=== PATIENT | female | born 1965 | race Caucasian/White ===

== ENCOUNTER 2020-04-13 05:53 | Inpatient (IN) ==
--- NOTE | 2020-03-23 13:22 | Anesthesiology Consultation ---
Date of Service March 23, 2020 Assessment & Plan (1) Encounter for pre-operative examination: Chart Review Chart Review: Acceptable Risk for Surgery (pending preop Covid testing ) and Patient NOT seen in Pre Admission Testing Pt initially scheduled for lumbar surgery 03/11/20- rescheduled due to Covid surge. Per nursing assessment 03/23/2020, patient denies any recent travel. No known Covid positive contacts or Covid related symptoms. Scheduled for preop Covid testing 04/06/20= will await results. Per PCP note 03/02/20= preop blood work on 02/25/20 showed Na of 128. Pt did drink alcohol daily but has not drank alcohol since 02/25/20. No signs or symptoms of detox. Also stopped HCTZ. Plan is for repeat labs 03/03/20. "She is cleared for surgery depending on her hyponatremia status on her labs tomorrow.." Per PCP comment on 03/03/20 labs= "called patient-- labs normal-- 138 sodium." History Surgery Operation Date: 04/13/20 12:45 Proposed Procedures p L3-L4 Decompression Fusion, Spinal Cord Monitoring - Dheeraj Flower DO Height/Weight Height: 5 ft 6 in Weight: 108.862 kg Allergies Allergy/AdvReac Type Severity Reaction Status Date / Time ampicillin Allergy Unknown Verified 03/23/20 12:15 Penicillins Allergy Unknown Verified 03/23/20 12:15 Medications Home Medications Medication Instructions Recorded Confirmed Last Taken acetaminophen-codeine 1 tab PO BID PRN 01/01/20 03/23/20 Unknown carisoprodol 350 mg PO HS PRN 01/01/20 03/23/20 Unknown doxycycline hyclate 100 mg PO BIDM 01/01/20 03/23/20 Unknown hydrochlorothiazide 25 mg PO DAILY PRN 01/01/20 03/23/20 Unknown lisinopril 10 mg PO QAM 01/01/20 03/23/20 Unknown lorazepam 0.25 - 0.5 mg PO BID PRN 01/01/20 03/23/20 Unknown lysine 1,000 mg PO QAM 01/01/20 03/23/20 Unknown omega-3 fatty acids-fish oil [Fish 1 cap PO QAM 01/01/20 03/23/20 Unknown Oil Extra Strength] thyroid (pork) [[place] Thyroid] 30 mg PO QAM 01/01/20 03/23/20 Unknown ibuprofen [Advil] 400 mg PO Q6H PRN 02/17/20 03/23/20 Unknown Past Medical History Medical History Anxiety Bulging discs Depression Fluid retention ankles (occasionally) Hypertension Hypothyroidism Osteoarthritis Rosacea Past Family History Family History Mother Diabetes Past Surgical History Surgical History History of appendectomy History of intussusception when 3 months old with surgical intervention History of tonsillectomy Hx of fracture left leg surgical repair Social History Smoking Status: Former smoker Do You Dip or Chew Tobacco: No Smoking End Date: 5 yrs ago Hx Alcohol Use: Yes Alcohol type: beer, wine and hard liquor alcohol intake frequency: 3 or more drinks per day Hx Substance Use: No substance use type: does not use Testing Laboratory Results 03/03/20= SODIUM: 138 POTASSIUM: 4.0 CHLORIDE: 101 CO2: 25 BUN: 13 CREATININE: 0.7 GLUCOSE: 92 Laboratory Tests 02/25/20 02/25/20 14:34 14:34 WBC 6.65 Hgb 14.5 Hct 41.2 Plt Count 208 PT 11.9 INR 1.1 APTT 27.6 02/25/20= UA: negative URINE CULTURE: Gardnerella-like bacilli T&S: O negative, antibody negative Electrocardiogram Date: 02/25/20 Findings: + NSR @ (92bpm) Normal EKG. Chest X-Ray Date: 02/25/20 Findings: + NAD Mild right hemidiaphragmatic elevation.
[2020-04-13] MEDS ORDERED: LR 15ML/HR IV SCH (06:00)
[2020-04-13] MEDS ORDERED: CLINDAMYCIN 600 MG/54 ML BAG IV SCH (06:00)
[2020-04-13] MEDS ORDERED: GABAPENTIN 600 MG DOSE PO SCH (06:00)
[2020-04-13] MEDS ORDERED: MIDAZOLAM HCL 1 MG/ML 2ML VIAL ONE (07:06)
[2020-04-13] MEDS ORDERED: fentaNYL citrate 100 MCG/2 ML VIAL ONE (07:06)
[2020-04-13] MEDS ORDERED: LABETALOL HCL IV 5 MG/ML 20ML IV PRN (07:11)
[2020-04-13] MEDS ORDERED: HYDROmorphone INJ 1 MG/ML SYRINGE IV PRN ×2 (07:11→10:57)
[2020-04-13] MEDS ORDERED: ONDANSETRON INJ 2 MG/ML 2 ML VIAL IV PRN ×2 (07:11→10:57)
[2020-04-13] MEDS ORDERED: PROMETHAZINE HCL 12.5 MG in SODIUM CHLORIDE 0.9% 50 ML IV PRN ×2 (07:11→10:57)
[2020-04-13] MEDS ORDERED: ATROPINE SULFATE 0.1 MG/ML 10ML SYR IV PRN (07:11)
[2020-04-13] MEDS ORDERED: BACITRACIN INJ 50,000 UNIT VIAL ONE (07:13)
[2020-04-13] MEDS ORDERED: BUPIVACAINE/EPINEPHRINE 0.5% MPF 1:200,000 30 ML VIAL ONE (07:14)
[2020-04-13] MEDS ORDERED: PROPOFOL IV EMULSION 10 MG/ML 20 ML VIAL IV ONE (07:30)
[2020-04-13] MEDS ORDERED: LIDOCAINE HCL 2% 2 ML VIAL/AMP(20MG/ML) INFIL ONE (07:30)
[2020-04-13] MEDS ORDERED: ROCURONIUM BROMIDE 10 MG/ML 5 ML VIAL IV ONE ×2 (07:30→08:31)
[2020-04-13] MEDS ORDERED: GLYCOPYRROLATE 0.2 MG/ML VIAL ONE (07:30)
[2020-04-13] MEDS ORDERED: ONDANSETRON INJ 2 MG/ML 2 ML VIAL ONE (07:30)
[2020-04-13] MEDS ORDERED: DEXAMETHASONE SOD INJ 4 MG/ML VIAL ONE (07:30)
[2020-04-13] MEDS ORDERED: NEOSTIGMINE METHYLSULFATE 1 MG/ML 10ML VIAL ONE (07:30)
--- NOTE | 2020-04-13 07:33 | History & Physical Bridge Note ---
Date of Service April 13, 2020 History & Physical Bridge Note I have examined the patient, reviewed the History & Physical and in the interval since the performance of the History & Physical I have noted the following changes of clinical significance: no changes noted
--- NOTE | 2020-04-13 07:34 | History & Physical Report ---
Date of Service April 13, 2020 Assessment & Plan (1) Neurogenic claudication due to lumbar spinal stenosis: Admission and Anticipated Discharge Date Admission Date: L3-L4 decompression fusion History of Present Illness Chief Complaint: Back and leg pain Primary Care Provider: Joseph Richardson This is a 55-year-old female who presents with car persistent back and leg pain. Failing course of nonoperative care she is here for surgical intervention. Allergies Allergy/AdvReac Type Severity Reaction Status Date / Time ampicillin Allergy Unknown Verified 04/13/20 06:21 Penicillins Allergy Unknown Verified 04/13/20 06:21 Home Medications Medication Instructions Recorded Confirmed Type acetaminophen-codeine 1 tab PO BID PRN 01/01/20 04/13/20 History carisoprodol 350 mg PO HS PRN 01/01/20 04/13/20 History doxycycline hyclate 100 mg PO BIDM 01/01/20 04/13/20 History hydrochlorothiazide 25 mg PO DAILY PRN 01/01/20 04/13/20 History lisinopril 10 mg PO QAM 01/01/20 04/13/20 History lorazepam 0.25 - 0.5 mg PO BID PRN 01/01/20 04/13/20 History lysine 1,000 mg PO QAM 01/01/20 04/13/20 History omega-3 fatty acids-fish oil [Fish 1 cap PO QAM 01/01/20 04/13/20 History Oil Extra Strength] thyroid (pork) [[place] Thyroid] 30 mg PO QAM 01/01/20 04/13/20 History ibuprofen [Advil] 400 mg PO Q6H PRN 02/17/20 04/13/20 History naproxen sodium [Aleve] 220 mg PO BID PRN 04/13/20 04/13/20 History polyethylene glycol 3350 [Miralax] 17 g PO DAILY 04/13/20 04/13/20 History Past Med/Surg History Medical History Anxiety Bulging discs Depression Fluid retention ankles (occasionally) Hypertension Hypothyroidism Osteoarthritis Rosacea Surgical History History of appendectomy History of intussusception when 3 months old with surgical intervention History of tonsillectomy Hx of fracture left leg surgical repair Family History Mother Diabetes Social History Smoking Status: Former smoker Tobacco Type: Cigarettes Smoking End Date: 5 yrs ago; Second Hand Exposure: Yes; Do You Dip or Chew Tobacco: No; Tobacco Cessation Education Requested by Patient: No Hx Alcohol Use: Yes Alcohol type: beer, wine and hard liquor Hx Substance Use: No Preferred Language: Kazakh Communication Ability: Effective Manager Play Required: No Beliefs That Will Affect Care: None Current Living Situation: Significant Other Other Information That Helps Us Care for You: No Feels Safe at Home: Yes Safety Concerns: Feels Safe At This Time Assistive Devices: None and Walker Physical Exam Physical Exam: Patient is alert and oriented Heart regular in rhythm Lungs clear to auscultation Results & Data ([facility]) Vital Signs (Past 12 Hours) Vital Signs Temp Pulse Resp BP Pulse Ox 04/13/20 06:35 36.9 C 85 20 174/99 H 98
[2020-04-13] MEDS ORDERED: HYDROmorphone INJ 2 MG/ML SYR/VIAL ONE (08:11)
[2020-04-13] MEDS ORDERED: LARYING-O-JET KIT (LTA) ONE (08:48)
[2020-04-13] MEDS ORDERED: LABETALOL HCL IV 5 MG/ML 20ML IV ONE ×3 (09:07→09:17)
[2020-04-13] MEDS ORDERED: FLOSEAL HEMOSTATIC MATRIX 10ML TOP ONE (09:14)
--- NOTE | 2020-04-13 09:24 | Operative Report ---
Post Operative Report Pre & Post Diagnosis Operation Date: 04/13/20 07:45 Pre-Op Diagnosis: Spinal Stenosis, Lumbar Region with Neurogenic Morbid obesity Post-Op Diagnosis: Spinal Stenosis, Lumbar Region with Neurogenic Morbid obesity I identified the patient and participated in the time-out.: Yes Procedure Operation Date: 04/13/20 07:45 Actual Procedures #1 lumbar decompression with bilateral medial facetectomies and foraminotomies L2-3 and L3-4 per #2 posterior spinal fusion L3-4. #3 placement posterior instrumentation L3-4 per #4 interbody fusion L3-4 per #5 placement of peek cage 13 x 26 mm at L3-4. #6 placement locally harvested morselized autograft in the posterior lateral gutters per #7 placement infuse collagen sponge plan master graft in the posterior lateral gutters and ostial amp interbody space. Surgeon Dheeraj Flower, Char Conveyor Tender Cellar Adela Azevedo Estimated Blood Loss 200 Findings See Below Patient is 5 foot 6 inches tall weighing over 113 kg with a BMI in excess of 40. Patient's body habitus did add significant technical difficulty requiring her deepest retractors and longus instruments in order to perform her procedure. This had at least 50% increase to the operative time. Specimens None Indications This is a 55-year-old female known to me the presents with above-mentioned diagnosis after failing course of nonoperative care she is here for the above- mentioned seizure. Description of Procedure Patient was met with identified informed consent obtained. Patient was then taken to the operative suite underwent an patient placed in a prone position on the Giovanni table atop the Maxi frame. All bony prominences well-padded eyes inspected to ensure no external pressure placed upon them. This point the lumbar spine was prepped and draped in a sterile fashion. Sharp dissection with the assistance of Bovie cautery was performed down to and exposing the lamina and transverse processes of L3-L4 bilaterally. From caudal to cephalad fashion complete laminectomy of L3 partial laminectomy of L2 was performed including bilateral medial facetectomies and foraminotomies addressing all neural compression. I then placed pedicle screws at L3 and L4 bilaterally with assistance of fluoroscopy and appropriately sized myla placed. By way of a transforaminal approach on the left complete discectomy was performed endplates curetted to subcortical bleeding bone and a 13 x 26 mm peek cage filled with osteobone graft tapped in position. Please note I did address all fragments of disc material that had migrated caudally under the left L4 nerve root. The rods were then locked in final position bilaterally. The transverse processes of L3 and L4 were burred to subcortical bleeding bone. Infuse collagen sponge mass graft local autograft was placed in the posterior gutters. 15 round KENNETH drain inserted. The incision was then closed with 1 Vicryl in the fascia 2-0 Vicryl subcutaneously and 4 Monocryl for final skin closure. Steri-Strip sterile dressings placed. Patient will continue PACU stable condition. Please note spinal cord monitoring was last that the procedure no changes noted. Lastly Adela Azevedo was present at the entire surgery involved the patient positioning complex portions of the surgery and final skin closure. I attest to the content of the Intraoperative Record and any orders documented therein. Any exceptions are noted below.
--- NOTE | 2020-04-13 09:38 | Fluoroscopy Report ---
INTRAOPERATIVE RADIOGRAPHS CLINICAL HISTORY: L3-L4 spinal fusion. Fluoroscopy time: 19 seconds. FINDINGS: 2 spot fluoroscopic views of the lumbar spine are presented. There has been discectomy at L 3-L4 with laminectomy and posterior fusion at this level. Interpedicular screws are in place. The ort hopedic hardware appears intact. IMPRESSION: Intraoperative images from L3-L4 spinal fusion as above. Electronically signed by: Gerson Awad M.D. 04/13/2020 9:36 AM
[2020-04-13] MEDS ORDERED: hydroCHLOROthiazide 25 MG TAB PO PRN (10:57)
[2020-04-13] MEDS ORDERED: MAGNESIUM HYDROXIDE SUSP 30 ML UDC PO PRN (10:57)
[2020-04-13] MEDS ORDERED: METOCLOPRAMIDE HCL INJ 5 MG/ML 2 ML VIAL IV PRN (10:57)
[2020-04-13] MEDS ORDERED: DO NOT ADMINISTER FLU VACCINE PRN (10:57)
[2020-04-13] MEDS ORDERED: DO NOT ADMINISTER PNEUMOCOCCAL VACCINE PRN (10:57)
[2020-04-13] MEDS ORDERED: hydrOXYzine HCl 25 MG TAB PO PRN (10:57)
[2020-04-13] MEDS ORDERED: diphenhydrAMINE Capsule 25 MG CAP PO PRN (10:57)
[2020-04-13] MEDS ORDERED: FAMOTIDINE 20 MG TAB PO PRN (10:57)
[2020-04-13] MEDS ORDERED: ALUMINUM/MAGNESIUM SUSP 30 ML UDC PO PRN (10:57)
[2020-04-13] MEDS ORDERED: ONDANSETRON 4 MG OD TAB PO PRN (10:57)
[2020-04-13] MEDS ORDERED: SOD PHOSPHATE/SOD BIPHOSPHATE ENEMA 132 ML BTL PR PRN (10:57)
[2020-04-13] MEDS ORDERED: NALOXONE HCL 0.4 MG/1 ML VIAL/CARP IV PRN (10:57)
[2020-04-13] MEDS ORDERED: LORazepam 0.5 MG/1 ML VIAL IV PRN (10:57)
[2020-04-13] MEDS: HYDROmorphone INJ 0.5 MG/0.5 ML SYR IV PRN (11:15)
[2020-04-13] MEDS: KETOROLAC TROMETHAMINE 15 MG/ML VIAL IV SCH ×3 (12:23→23:53)
[2020-04-13] MEDS: oxyCODONE HCL IR 5 MG TAB (IMMEDIATE RELEASE) PO PRN ×2 (13:48→19:09)
--- NOTE | 2020-04-13 14:43 | Anesthesiology Progress Note ---
Date of Service April 13, 2020 Anesthesia Post Procedure Vital Signs Vital Signs: Temp Pulse Pulse Pulse Resp BP BP 04/13/20 14:35 36.6 C 69 16 135/89 04/13/20 13:42 74 18 138/92 04/13/20 12:26 64 16 139/89 04/13/20 11:30 57 L 18 124/81 04/13/20 11:00 62 18 141/95 H 04/13/20 10:35 36.5 C 64 16 129/87 04/13/20 10:26 36.3 C L 57 L 16 130/89 04/13/20 10:15 36.3 C L 60 16 133/94 04/13/20 10:05 63 15 121/89 04/13/20 09:55 61 14 118/85 04/13/20 09:45 61 16 120/80 04/13/20 09:39 37 C 75 16 144/93 H 04/13/20 06:35 36.9 C 85 20 174/99 H Pulse Ox 04/13/20 14:35 93 04/13/20 13:42 96 04/13/20 12:26 97 04/13/20 11:30 95 04/13/20 11:00 98 04/13/20 10:35 97 04/13/20 10:26 94 04/13/20 10:15 94 04/13/20 10:05 94 04/13/20 09:55 94 04/13/20 09:45 98 04/13/20 09:39 98 04/13/20 06:35 98 Pain Intensity Lower Back: Pain Intensity: 2 Transfer of Care Handoff Completed per policy Notes Mental Status: alert / awake / arousable Patient Amnestic to Procedure: Yes Nausea / Vomiting: adequately controlled Pain: adequately controlled Airway Patency, RR, SpO2: stable & adequate BP & HR: stable & adequate Hydration State: stable & adequate Anesthetic Complications: no major complications apparent
[2020-04-13] MEDS: LACTATED RINGER'S 1,000 ML IV SCH (16:34)
[2020-04-13] MEDS: CLINDAMYCIN 600 MG in DEXTROSE 5% 50 ML IV SCH ×2 (16:37→23:52)
[2020-04-13] MEDS: DOCUSATE SODIUM/SENNA 50/8.6MG TAB PO SCH (20:26)
[2020-04-13] MEDS: ACETAMINOPHEN 1,000 MG/100 ML VIAL IV PRN (21:52)
[2020-04-13] MEDS: CARISOPRODOL 350 MG TABLET PO PRN (23:53)
[2020-04-14] MEDS: oxyCODONE HCL IR 5 MG TAB (IMMEDIATE RELEASE) PO PRN ×6 (00:33→23:28)
[2020-04-14] MEDS: LACTATED RINGER'S 1,000 ML IV SCH (00:37)
[2020-04-14] MEDS: traMADol HCL 50 MG TABLET PO PRN ×3 (03:41→20:18)
[2020-04-14] MEDS: KETOROLAC TROMETHAMINE 15 MG/ML VIAL IV SCH (05:37)
[2020-04-14 06:09] LABS: Basophils # (auto) 0.02 K/uL (0-0.2); Basophils % (auto) 0.3 %; Eosinophils # (auto) 0.05 K/uL (0-0.5); Eosinophils % (auto) 0.7 %; Hematocrit (blood only) 31.7 % (37-47); Hemoglobin 10.5 g/dL (12.0-16.0); Immature Granulocytes # (auto) 0.01 K/uL (0.00-0.02); Immature Granulocytes % (auto) 0.1 %; Lymphocytes # (auto) 1.46 K/uL (1.2-3.4); Lymphocytes % (auto) 21.4 %; Mean Corpuscular Hemoglobin 32.9 pg (25-34); Mean Corpuscular Hgb Conc 33.1 g/dL (32-36); Mean Corpuscular Volume 99.4 fL (80-100); Monocytes # (auto) 1.09 K/uL (0.11-0.59); Neutrophils % (auto) 61.5 %; Platelet Count 169 K/uL (130-400); RDW Coefficient of Variation 13.8 % (11.5-14.5); RDW Standard Deviation 49.6 fL (36.4-46.3); Red Blood Count 3.19 M/uL (4.2-5.4); White Blood Count 6.83 K/uL (4.8-10.8)
[2020-04-14 06:32] LABS: Calcium 8.9 mg/dl (8.5-10.1); Creatinine Clr Calc Pharmacy 106.8 ml/min; Est GFR (African American) 103.3; Est GFR (Non-African American) 89.1; Potassium 4.1 mmol/L (3.5-5.1)
[2020-04-14] MEDS: POLYETHYLENE (MIRALAX) 17 GM PACK PO SCH ×4 (08:30→23:29)
[2020-04-14] MEDS: lisinopril 10 MG TAB PO SCH (08:30)
[2020-04-14] MEDS: LORazepam 0.5 MG TAB PO PRN ×2 (08:38→16:16)
[2020-04-14] MEDS ORDERED: ARMOUR THYROID 30 MG TAB PO SCH (09:00)
[2020-04-14] MEDS ORDERED: NURSING DECISION MEDICATION ONE (13:46)
[2020-04-14] MEDS ORDERED: Nursing to Pharmacy Communication SCH (14:00)
[2020-04-14] MEDS: HYDROmorphone INJ 0.5 MG/0.5 ML SYR IV PRN (16:18)
--- NOTE | 2020-04-14 16:27 | Orthopedic Progress Note ---
Date of Service April 14, 2020 Assessment & Plan (1) Neurogenic claudication due to lumbar spinal stenosis: Admission and Anticipated Discharge Date Admission Date: April 13, 2020 This time we will continue physical therapy monitor KENNETH output anticipate disch arge home in the next few days. Subjective Back pain controlled leg symptoms markedly improved. Physical Exam Physical Exam: Patient is good strength testing appears comfortable. Results & Data ([facility]) Vital Signs (Past 12 Hours) Vital Signs Temp Pulse Resp BP Pulse Ox 04/14/20 15:00 37 C 89 16 142/92 H 99 04/14/20 11:50 36.7 C 83 16 138/83 95 04/14/20 07:00 36.6 C 75 16 130/81 97
[2020-04-14] MEDS: DOXYCYCLINE HYCLATE 100 MG CAP PO SCH ×2 (18:14→18:25)
[2020-04-14] MEDS: CARISOPRODOL 350 MG TABLET PO PRN (19:52)
[2020-04-14] MEDS: DOCUSATE SODIUM/SENNA 50/8.6MG TAB PO SCH (20:18)
[2020-04-14] MEDS: ACETAMINOPHEN 1,000 MG/100 ML VIAL IV PRN (23:23)
[2020-04-15] MEDS: traMADol HCL 50 MG TABLET PO PRN ×3 (03:54→22:03)
[2020-04-15] MEDS: ARMOUR THYROID 30 MG TAB PO SCH (05:36)
[2020-04-15] MEDS: oxyCODONE HCL IR 5 MG TAB (IMMEDIATE RELEASE) PO PRN ×4 (05:39→23:01)
[2020-04-15] MEDS: POLYETHYLENE (MIRALAX) 17 GM PACK PO SCH (05:40)
[2020-04-15] MEDS: lisinopril 10 MG TAB PO SCH (07:55)
[2020-04-15] MEDS: DOXYCYCLINE HYCLATE 100 MG CAP PO SCH ×2 (07:56→17:22)
[2020-04-15] MEDS: DEXAMETHASONE SOD PHOSPHATE 8 MG in SYRINGE 0 ML IV SCH (07:56)
[2020-04-15] MEDS ORDERED: bisacodyL 10 MG SUPP PR PRN (09:26)
--- NOTE | 2020-04-15 10:46 | Orthopedic Progress Note ---
Date of Service April 15, 2020 Assessment & Plan (1) Neurogenic claudication due to lumbar spinal stenosis: Admission and Anticipated Discharge Date Admission Date: April 13, 2020 At this time continue physical therapy monitor KENNETH output. We are anticipating possible rehab or home health upon discharge. Could be as soon as tomorrow. Subjective Back pain controlled leg symptoms improved. Physical Exam Physical Exam: Patient is good strength testing appears comfortable. Results & Data ([facility]) Vital Signs (Past 12 Hours) Vital Signs Temp Pulse Resp BP Pulse Ox 04/15/20 07:37 36.9 C 77 16 129/69 96 04/14/20 23:06 36.8 C 87 18 161/99 H 92
[2020-04-15] MEDS: CARISOPRODOL 350 MG TABLET PO PRN ×2 (11:24→20:10)
[2020-04-15] MEDS: HYDROmorphone INJ 0.5 MG/0.5 ML SYR IV PRN ×2 (15:21→21:30)
[2020-04-15] MEDS: LORazepam 0.5 MG TAB PO PRN (19:50)
[2020-04-15] MEDS: DOCUSATE SODIUM/SENNA 50/8.6MG TAB PO SCH (19:50)
[2020-04-15] MEDS: ACETAMINOPHEN 500 MG TAB PO PRN (22:00)
[2020-04-16] MEDS: HYDROmorphone INJ 0.5 MG/0.5 ML SYR IV PRN ×2 (02:34→09:37)
[2020-04-16] MEDS: oxyCODONE HCL IR 5 MG TAB (IMMEDIATE RELEASE) PO PRN ×4 (02:51→16:30)
[2020-04-16] MEDS: CARISOPRODOL 350 MG TABLET PO PRN ×2 (04:01→12:15)
[2020-04-16] MEDS: ARMOUR THYROID 30 MG TAB PO SCH (06:09)
[2020-04-16] MEDS: ACETAMINOPHEN 500 MG TAB PO PRN (06:10)
[2020-04-16] MEDS: lisinopril 10 MG TAB PO SCH (07:44)
[2020-04-16] MEDS: DOXYCYCLINE HYCLATE 100 MG CAP PO SCH ×2 (07:45→16:30)
[2020-04-16] MEDS: traMADol HCL 50 MG TABLET PO PRN ×2 (07:45→14:38)
[2020-04-16] MEDS: DEXAMETHASONE SOD PHOSPHATE 8 MG in SYRINGE 0 ML IV SCH (07:45)
--- NOTE | 2020-04-16 13:27 | Discharge Summary ---
Date of Service April 16, 2020 Admission HPI Per Admitting Provider This is a 55-year-old female who presents with car persistent back and leg pain. Failing course of nonoperative care she is here for surgical intervention. Principal Diagnosis Lumbar spinal stenosis with neurogenic claudication Discharge Data Allergies Allergy/AdvReac Type Severity Reaction Status Date / Time ampicillin Allergy Unknown Verified 04/13/20 06:21 Penicillins Allergy Unknown Verified 04/13/20 06:21 Consultations 04/13/20 10:57 Consult Case Management - Discharge Planning Routine Procedures Performed Operation Date: 04/13/20 07:45 Actual Procedures p L3-L4 Decompression Fusion, Spinal Cord Monitoring, Application of Bone Morphogenetic Protein and Allograft, Placement of Interbody L3-L4 - Dheeraj Flower DO Ordered Studies 04/13/20 07:45 FL fluoroscopy <1hr Routine FL lumbar spine 2-3V Routine Hospital Course (1) Neurogenic claudication due to lumbar spinal stenosis: Patient with radicular symptoms intolerance was taken to the orthopedic floor postoperative. Postop day 1 she was up and ambulating progressed to postop day #2 on postop day #3 KENNETH drain decreased probably. Pain well controlled. Subsequently discharged home. Discharge orders instructions were on the chart for further review. Total Time Total Time Spent Total Time Spent (In Minutes): 20 minutes Discharge Plan Discharge Items Patient Disposition: Home - Home Health Services Reason For Visit: Spinal Stenosis, Lumbar Region with Neurogenic Discharge Diagnosis: Lumbar spinal stenosis with neurogenic claudication Activity: As commented below Non-emergency contact: Primary Care Provider Call non-emergency contact if: you have any medication questions Follow-up/Referrals: Joseph Richardson [Primary Care Provider] - Diet: Regular Addtl Attending Provider Instructions: ACTIVITY RECOMMENDATIONS: SELF CARE INSTRUCTIONS AFTER THORACIC/LUMBAR FUSIONS 1. You may walk to your tolerance. It is good exercise for your legs and back. Expect some back and intermittent leg aches and pains. 2. You may perform "counter-top" level activities (make a sandwich, suzette with a project, etc.). 3. No bending or lifting of more than 10 pounds or back twisting of any nature (roll like a log when turning in bed). 4. You may ride in a car for 20-30 minutes at a time. No driving until after your first visit with your doctor. 5. Frequent changes of position and restricting sitting to 30 minutes at a time will help limit the amount of back spasms and stiffness you may experience. 6. You may discontinue the use of ambulatory aids (cane, crutches, etc.) once your strength and confidence allow. 7. You may international operations manager the shower and let water strike your incision when you arrive home at least once daily. Do not take a tub bath, sit in a hot tub or go into a swimming pool until after your first recheck in the office. SPECIAL CARE INSTRUCTIONS: VERY IMPORTANT TO READ AND REVIEW A. Your surgical incision has been closed with a cosmetic suture under the skin that will dissolve in about 6 weeks. In 14 days, you can use a pair of clean scissors and cut the suture that is left outside of the skin at the ends of your incision. 1. The small skin tapes can be removed 7 days after surgery if they have not fallen off by that point. 2. You may keep the wound open to air as much as possible to promote healing after post-op day number 5 unless told otherwise by your doctor. 3. If you think the wound looks like it is becoming infected (redness or worsening drainage) and/or you are experiencing fever, chill or worsening back pain and muscle spasms, contact the office so that we may evaluate you as soon as possible. B. Complications are uncommon, but please contact us if you have any signs or symptoms of: 1. wound infection (fever higher than 102.5 degrees F, redness, separation of wound, drainage, or increasing pain from the incision) 2. blood clots in legs (pain, swelling, redness and warmth in legs) 3. urinary tract infection (fever higher than 102.5 degrees F, burning upon urination or increased frequency of urination) 4. nerve problems (inability to walk on your toes or heels, numbness, loss of bowel or bladder control) 5. any other symptoms that concern you C. Please call the office at if you have any concerns or questions about your operation or recovery. D. No smoking! Smoking drastically decreases the chance of a solid fusion. E. Do not take any anti-inflammatory medications (Indocin, Advil, Motrin, Aspirin, Naprosyn, etc.) as these may inhibit the chance of a solid fusion. Tylenol is okay to take for pain. MANAGING PAIN AFTER SPINAL SURGERY 1. Narcotic medication is intended for short-term use and will be provided for surgical pain. Surgical pain usually lasts for a period of 4-6 weeks. Narcotic medication includes Percocet, Vicodin, Darvocet, Tylenol #3 or Lortab. 2. Longer-term pain is more appropriately treated with non-narcotic medication such as Tylenol ES. 3. Muscle spasm is not appropriately treated with narcotics. Muscle relaxers such as Soma, Flexeril or Skelaxin can be used along with Tylenol ES. 4. Remember that we all live with some "aches and pains". This is not unusual or uncommon after an injury or as we get older. a. Back pain is expected and may include muscle spasms for 4 to 6 weeks after surgery. The pain should gradually improve. If the pain worsens for no apparent reason, please contact the office. b. Intermittent leg pain may also be experienced and should not be concerned about unless it worsens for no apparent reason. If so, please contact the office. 5. We will provide appropriate medication within the normal guidelines of their prescribed use. We will also be very cautious and aware of potential abuse and extended duration of patients' medication needs. a. Pain medications are for your comfort and to assist with sleep and rest so that the tissue can heal. They are not provided in order to return to normal activity and should not be used through the day. To do so or worsening pain at night can result from ongoing tissue damage and development of tolerance to the prescribed medicine. 6. Please allow 2-3 days to process refills. Prescriptions will not be mailed but must be picked up at the office. FOLLOW UP VISIT: Keep your scheduled follow-up appointment. Any questions, please call the office at . Pending Studies at Discharge: No Stand-Alone Forms: [employer], Smoking Cessation Medications and DC Order Prescriptions: New tramadol 50 mg tablet 50 mg PO Q6H PRN (Reason: pain, moderate) Qty: 30 RF: 0 oxycodone 5 mg tablet 5 mg PO Q6H PRN (Reason: pain, severe) Qty: 30 RF: 0 carisoprodol [Soma] 350 mg Tablet 350 mg PO Q8 PRN (Reason: muscle pain) Qty: 20 RF: 0 carisoprodol [Soma] 350 mg tablet 350 mg PO ONCE Qty: 14 RF: 0 Continued doxycycline hyclate 100 mg capsule 100 mg PO BIDM RF: 0 acetaminophen-codeine 300-30 mg tablet 1 tab PO BID PRN (Reason: Pain) RF: 0 lorazepam 0.5 mg tablet 0.25 - 0.5 mg PO BID PRN (Reason: Anxiety) RF: 0 lisinopril 10 mg tablet 10 mg PO QAM RF: 0 hydrochlorothiazide 25 mg tablet 25 mg PO DAILY PRN (Reason: Edema) RF: 0 thyroid (pork) [[place] Thyroid] 30 mg tablet 30 mg PO QAM RF: 0 lysine 1,000 mg Tablet 1,000 mg PO QAM RF: 0 Fish Oil Extra Strength 435-880 mg Capsule 1 cap PO QAM RF: 0 ibuprofen [Advil] 200 mg Tablet 400 mg PO Q6H PRN (Reason: Pain) RF: 0 polyethylene glycol 3350 [Miralax] 17 gram Powder In Packet 17 g PO DAILY RF: 0 Discontinued carisoprodol 350 mg tablet 350 mg PO HS PRN (Reason: Back Pain) RF: 0 naproxen sodium [Aleve] 220 mg Tablet 220 mg PO BID PRN (Reason: Pain) RF: 0 Discharge Orders: Discharge Order (Routine); Ordered 04/16/20 Ordered By: Dheeraj Flower Admission Data Admit Date/Time: 04/13/20 09:41 Attending Provider: Dheeraj Flower Admit Provider: Dheeraj Flower Primary Care Provider: Joseph Richardson [facility] Other Interventions: Discharge Summary Assessment (RN) Last Done: 04/16/20 13:05
== END 2020-04-16 17:22 | disposition home health service (06) | DRG 454 ==
LOC: ASU 05:53 → 3E 09:41